=== PATIENT | female | born 1960 | race African-American/Black ===

== ENCOUNTER → 2019-08-18 | Outpatient (CLI) | payer OTHER ==
[~2019-08-18] VITALS: Ht 157.5 cm; Wt 86.2 kg
[~2019-08-18] MED LIST: ESTRADIOL 1 MG T1 M1 PO; IBU800 MG PO; NORVASC5 MG PO; ZANAFLEX4 MG PO
[2019-08-18 09:54] VITALS: BP 131/77
--- NOTE | 2019-08-18 10:34 | NUR ---
Pain Clinic Assessment: 1. History of Osteoarthritis: Not Applicable History of Rheumatoid Arthritis: Not Applicable 2. Height: 5 ft. 2 in. 157.5 cm. Weight: 190.0 lb. oz. 86.184 kg. Patient's BMI: 34.7 3. Vital Signs: BP: 131/77 Pulse: 78 Resp: 16 Temp: 02 Sat: 98 ECG Mon: 4. Pain Intensity: 5 5. Fall Risk: Dizziness: N Needs help standing or walking: N Fallen in the last 3 months: N Fall risk comments: 6. Patient on Blood Thinner: None 7. History of Hypertension: Y 8. Opioid Therapy greater than 6 weeks: N Opiate Contract Signed: 9. Risk Assessment Tool Provided: 10. Functional Assessment Tool: 11. Recreational Drug Use: Never Drug Type: Tobacco Use: Never Smoker Tobacco Type: Amount or Packs/day: How Many Years: Alcohol Use: Yes Frequency: Weekly Quant: 2
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
== END ==
LOC: PAIN 09:36
DX: M54.16 Radiculopathy, lumbar region (principal); I10 Essential (primary) hypertension; Z79.899 Other long term (current) drug therapy

== ENCOUNTER → 2019-08-30 | Outpatient (CLI) | payer OTHER ==
[~2019-08-30] VITALS: Ht 157.5 cm; Wt 88.3 kg
[2019-08-30 08:57] VITALS: BP 128/85
--- NOTE | 2019-08-30 09:19 | NUR ---
Pain Clinic Assessment: 1. History of Osteoarthritis: Not Applicable History of Rheumatoid Arthritis: Not Applicable 2. Height: 5 ft. 2 in. 157.5 cm. Weight: 194.6 lb. oz. 88.270 kg. Patient's BMI: 35.6 3. Vital Signs: BP: 128/85 Pulse: 80 Resp: 16 Temp: 02 Sat: 98 ECG Mon: 4. Pain Intensity: 3 5. Fall Risk: Dizziness: N Needs help standing or walking: N Fallen in the last 3 months: N Fall risk comments: 6. Patient on Blood Thinner: None 7. History of Hypertension: Y 8. Opioid Therapy greater than 6 weeks: N Opiate Contract Signed: 9. Risk Assessment Tool Provided: LOW RISK 10. Functional Assessment Tool: 11. Recreational Drug Use: Never Drug Type: Tobacco Use: Never Smoker Tobacco Type: Amount or Packs/day: How Many Years: Alcohol Use: Yes Frequency: Quant:
--- NOTE | 2019-09-22 08:14 | HPC ---
[facility] [address] [place] [address] PAIN MANAGEMENT CONSULTATION Name: FLORENTINO GRANADOS Room #: REG [facility] Krupa#: [id number] Admission: 08/30/19 Attend Phys: Foreign Maldonado MD Discharge: Date of : 64 Report #: [id number] THIS REPORT FOR: //name// CC: Barb Maldonado DATE OF SERVICE: 08/30/2019 CHIEF COMPLAINT: Back and leg pain. HISTORY: The patient is a 59-year-old female who has been evaluated in the Pain Clinic because of chronic pain involving her right leg. The patient has pain and discomfort, which has been problematic over the last few 3-4 years. She is unable to wear high heel shoes. She has undergone chiropractic treatment. She has had massage therapy. She has numbness in the anterior portion of her thigh as well as some pain in the front of her [place]. She has used nonsteroidal anti-inflammatory medications as well as muscle relaxants. She has returned today with the hopes of undergoing an epidural steroid injection to help decrease her pain and discomfort. ALLERGIES: No known drug allergies. CURRENT MEDICATIONS: Amlodipine 5 mg, tizanidine 4 mg t.i.d., and Estrace 1 mg. PAIN CLINIC ASSESSMENT/PQRS: 1. The patient is not being treated for rheumatoid arthritis. 2. Height 5 feet 2 inches, weight 194 pounds, BMI is 35.6. 3. Vital Signs: Blood pressure 128/85, pulse 80, respiratory rate 16, room air saturation 98%. 4. Pain clinic intensity, 01/22. 5. Fall history: The patient has not fallen. 6. Blood thinner. The patient is not on a blood thinning medication. 7. Hypertension. The patient is being treated for hypertension. 8. Opioids greater than 6 weeks. 9. Risk is low for opioid use. 10. Functional assessment tool, low for functional assessment, . 11. Recreational drug use. The patient denies. 12. Tobacco: The patient has never smoked. 13. Alcohol: The patient drinks alcoholic beverages on occasion. PHYSICAL EXAMINATION: GENERAL: The patient is a well-developed, well-nourished black female, appears her stated age. She is alert and oriented x 3. Her affect is appropriate. Speech is fluent. HEENT: Normocephalic, atraumatic. Extraocular eye muscles intact. Sclerae nonicteric. Mucous membranes are moist. [address] [address] PAIN MANAGEMENT CONSULTATION Name: FLORENTINO GRANADOS Room #: REG CLI [facility]#: [id number] Admission: 08/30/19 Attend Phys: Foreign Maldonado MD Discharge: Date of : 64 Report #: [id number] NECK: Without adenopathy or JVD. HEART: Regular rate. ABDOMEN: Nontender. Bowel sounds present. EXTREMITIES: Upper extremity muscle strength is judged to be 5/5 for the major muscle groups in the upper extremity. The patient has pain and discomfort in the lower portion of her back that radiates down in the L4-L5 dermatomal distribution. The patient has some burning in her foot in the left in the L5-S1 dermatomal distribution. The patient has pain and radiation down into the dorsum of her foot in the L4-L5 dermatomal distribution. IMPRESSION: 1. Lumbar radiculopathy, L4-L5 dermatomal distribution with pain that radiates into the left foot with numbness, tingling in the L4-L5 dermatomal distribution. Positive straight leg raise. The patient has sensory changes with some perception of weakness. 2. Hypertension. RECOMMENDATIONS: We discussed treatment options with the patient. Risks and benefits of an epidural steroid injection were again reviewed. Possible complications of the procedure, which could include but are not limited to infection, worsening of pain, no improvement in pain, bleeding were discussed and the patient elects to proceed. PROCEDURE NOTE: The patient was taken to the procedure area. She was then assisted in getting on the examination table. She was then positioned. Fluoroscopy using anterior, posterior as well as lateral viewing were implemented. A 0.25% bupivacaine was infiltrated at the L4-L5 interspace. There was no CSF, heme or paresthesia. Total of 80 mg Depo-Medrol, 40 mg triamcinolone and 2 mL of 0.25% bupivacaine were injected at the L4-L5 interspace. The patient tolerated the procedure well. There were no complications. Total of 15 seconds fluoroscopy time was used. The patient was accompanied by her . She will follow up in the future as needed. We would like to thank you for letting us participate in her care. We hope she continues to improve. <ELECTRONICALLY SIGNED> By: Foreign Maldonado MD 09/22/19 0814 [id number] Foreign Maldonado MD /meredith
== END | disposition home or self-care (01) ==
LOC: PAIN 06:57
DX: M54.16 Radiculopathy, lumbar region (principal); G89.29 Other chronic pain; I10 Essential (primary) hypertension; Z79.899 Other long term (current) drug therapy; Z98.890 Other specified postprocedural states